=== PATIENT | female | born 1940 | race Caucasian/White ===

== ENCOUNTER 2020-08-06 04:28 | Inpatient (IN) | payer MEDICARE, BC ==
[2020-08-06] VITALS (11 sets, daily range): BP systolic 119–174; BP diastolic 59–86; PULSE 60–108; TEMP 97.8–98.2
[~2020-08-06] VITALS: Ht 157.5 cm; Wt 32.7 kg
[2020-08-06 05:05] LABS: BASO % 0.5 % (0.0-2.0); EOS # 0.1 (0.0-0.7); EOS % 1.3 % (0-4.0); GRAN # 5.2 (1.4-6.5); GRAN % 81.3 % (42.2-75.2); LYMPH # 0.6 (1.2-3.4); LYMPH % 9.4 % (20.0-51.0); MEAN CELL VOLUME 99 fl (80.0-100.0); MEAN CORPUSCULAR HEMOGLOBIN 32 pg (27.0-31.0); MEAN CORPUSCULAR HGB CONC 33 g/dl (33.0-37.0); MEAN PLATELET VOLUME 9.4 fl (7.4-10.4); MONO # 0.4 (0.1-0.6); MONO % 6.9 % (1.7-9.3); PLATELET COUNT 271 K/mm3 (130-400); RED BLOOD COUNT 3.71 M/mm3 (4.10-5.30); REDCELL DISTRIBUTION WIDTH-CV 13.6 % (11.5-14.5)
[2020-08-06 05:06] LABS: HEMATOCRIT 36.7 % (37.0-47.0)
[2020-08-06 05:24] LABS: ALBUMIN 3.8 gm/dL (3.5-5.0); BILIRUBIN,TOTAL 0.4 mg/dL (0.0-1.0); CALCIUM 9.1 mg/dL (8.4-10.2); CREATININE, serum 0.56 (0.52-1.25); POTASSIUM 3.4 mmol/L (3.4-5.0); TOTAL PROTEIN 6.8 gm/dL (6.4-8.2)
[2020-08-06 05:41] LABS: COLLECTION METHOD CLEAN CATCH
[2020-08-06 05:47] LABS: PH 8 (5-8); SQUAMOUS EPITHELIAL None Seen /hpf; URINE APPEARANCE Clear; URINE BACTERIA None Seen /hpf; URINE BILIRUBIN Negative (NEGATIVE); URINE BLOOD Negative (NEGATIVE); URINE COLOR Straw; URINE GLUCOSE Negative (NEGATIVE); URINE KETONE Negative (NEGATIVE); URINE LEUKOCYTE ESTERASE Negative (NEGATIVE); URINE NITRATE Negative (NEGATIVE); URINE PROTEIN(semi-quant) Negative (NEGATIVE); URINE RBC 0-2 /hpf; URINE UROBILINOGEN Negative (NEGATIVE)
--- NOTE | 2020-08-06 10:00 | NUR ---
KEYANA attended clinical rounds. The patient had a fall from her stepladder. PT/OT have been ordered. Awaiting recommendations. KEYANA then followed up with the patient to discuss discharge plan. The patient lives alone in [place]. She reports independence with ADLs and has a cane. She was not receiving any home health services prior. The patient's PCP is Dr. Chao Gomez and she receives her medications from [facility]. He reports no difficulties obtaining his meds. The patient does not have a DPOA-HC in EMR, but she states that she does have one completed and that it is in her safety box. She states that she designated her daughter, Selina (ph#[phone]). Selina lives in [place]. She states that her assistant city attorney office, [employer], should have a copy of it. KEYANA contacted Jackie at that firm and requested a copy. Jackie reports that they do have one on file and she can email the document to KEYANA. The patient states that she is . She has two living children: Selina and Price. Price lives in [place]. The patient would like to return home upon discharge. She states that Selina is flying up here and should be in [place] this evening. She states that Selina would be staying with her, when she leaves here. KEYANA attempted to contact Selina to review the above information. Selina's , Mick, answered the phone. Mick reports that he just dropped Selina off at the airport and that her flight into [place] should arrrive around 9:00 PM. Mick provided KEYANA with Selina's cell phone. Which is the above number. SW to continue to follow. *Discharge plan: Awaiting PT/OT recs*
--- NOTE | 2020-08-06 11:49 | NUR ---
Pt admission completed and charted. pt A&O, follows commands, needs redirection with conversation, occasionally scattered. Pt has LFA INT IV that flushes well. LS cta, HRRR, BS active. Pt very malnourished, thin and frail. Pt c/o pain to rt groin area from fall. Pt on room air, breathing is even and unlabored. No edema noted, pulses palpable. Pt c/o of being cold, provided w/ warm blanket. Pt down for MRI at this time. Report given to JEFERSON Monaco, receiving nurse.
--- NOTE | 2020-08-06 11:57 | NUR ---
SW received the patient's DPOA-HC and Living Will, via email. SW placed the documents in the patient's chart. The patient's DPOA-HC is her daughter, Selina, and son, Price.
--- NOTE | 2020-08-06 12:31 | NUR ---
Pt back from MRI, report given to JEFERSON Monaco. Pt has Rt hip fx. CXR and EKG ordered, staff called.
--- NOTE | 2020-08-06 12:39 | NUR ---
First visit from the deli manager. No needs right now.
[2020-08-06 13:27] LABS: INR 1.1 (0.8-3.0); PROTHROMBIN TIME 11.9 SECONDS (9.7-12.8)
--- NOTE | 2020-08-06 13:40 | NUR ---
Several new orders received. Xray done as well as EKG. ANUJ Thibodeaux with ortho and Dr Burgess just in to see patient. Pt is aware of surgery. She does have someone in the room with her. Pt cleared for surgery, OR called and will be getting patient soon. Clean gown on
--- NOTE | 2020-08-06 14:06 | NUR ---
Pt off the floor for surgery
--- NOTE | 2020-08-06 17:00 | NUR ---
Patient is back from surgery. She is alert and oriented. She is denying pain to her right hip. Her dressing to the 3 sites are C/D/I. Ice pack to hip. She has slight swelling to the distal 2 dressings. Her teleservices representative is here with her and stated her daughter is flying in [place]. Explained she can not come to visit her mom after 8pm. No other changes at this time. Call light within reach.
--- NOTE | 2020-08-06 19:00 | NUR ---
Patient is sitting up in the bed. Offered to help her get some food, she stated she just wanted water. She denies pain. She stated the potassium is burning so slowed the rate to 50ml/hr. NS infusing at 100ml/hr. She has a helms cathter but keeps asking about voiding. Explained the plan for the next couple days, she verbalized understanding. No other changes at this time. Call light within reach.
--- NOTE | 2020-08-06 20:00 | NUR ---
Patient assessed at this time. Complaining of buring/pain to IV site from Potassium. Called ANUJ Stockton and had it changed to oral instead. No further complaints to IV site. Site without redness, warmth, and swelling. Denies having SOB and dyspnea. LS CTA. Respirations even and unlabored. HRR. Capillary refill less than 3 seconds. Non-tenting skin turgor. BSAx4. Abdomen soft and non-tender. No edema. Indwelling helms catheter patent, and draining clear yellow urine via dependent drainage. Three surgical sites to right hip are CDI. Voices no questions, needs, or concerns at this time. Resting in bed with call light within reach.
--- NOTE | 2020-08-06 23:20 | NUR ---
Patient given PRN Mchenry for pain to right hip at this time, as well as PRN Melatonin for insomnia.
[2020-08-07 05:02] VITALS: BP 113/69; PULSE 77; TEMP 97.9
--- NOTE | 2020-08-07 06:11 | NUR ---
Patient has been resting in bed. no furhter complaints of pain or discomfort since receiving PRN [place] for pain. IV fluids continue per orders. Voices no questions, needs, or concerns at this time. Resting in bed with call light within reach.
[2020-08-07 07:17] LABS: BASO % 0.4 % (0.0-2.0); EOS # 0.1 (0.0-0.7); GRAN # 3.8 (1.4-6.5); GRAN % 78.5 % (42.2-75.2); LYMPH # 0.6 (1.2-3.4); LYMPH % 11.5 % (20.0-51.0); MEAN CELL VOLUME 99 fl (80.0-100.0); MEAN CORPUSCULAR HGB CONC 32 g/dl (33.0-37.0); MEAN PLATELET VOLUME 10.2 fl (7.4-10.4); MONO # 0.4 (0.1-0.6); MONO % 8.2 % (1.7-9.3); PLATELET COUNT 226 K/mm3 (130-400); REDCELL DISTRIBUTION WIDTH-CV 13.9 % (11.5-14.5)
[2020-08-07 07:24] LABS: HEMATOCRIT 30.8 % (37.0-47.0); HEMOGLOBIN 9.9 g/dl (12.5-16.0); MEAN CORPUSCULAR HEMOGLOBIN 32 pg (27.0-31.0)
[2020-08-07 07:27] LABS: CALCIUM 8.6 mg/dL (8.4-10.2); CREATININE, serum 0.54 (0.52-1.25); MAGNESIUM 2.1 mg/dL (1.6-2.3); POTASSIUM 3.6 mmol/L (3.4-5.0)
[2020-08-07 07:34] LABS: PRE ALBUMIN 14.2 mg/dL (17.6-36.0)
[2020-08-07 08:00] VITALS: BP 120/60; PULSE 73; TEMP 97.5
--- NOTE | 2020-08-07 09:31 | NUR ---
Initial visit; Patient sad about family not helping her but spoke about God's help and she doesn't care if she dies. She doesn't want to eat, she would just rather go be with God she says. Face And Fill Packer listened and spoke about God's help and his love for her. She did smile a couple times when Face And Fill Packer touched on something she liked. Tatiana thanked Face And Fill Packer for visit and offering prayer.
[2020-08-07 12:00] VITALS: BP 102/46; PULSE 83; TEMP 98.2
--- NOTE | 2020-08-07 14:49 | NUR ---
Assignment Desk Editor reviewed PT note and it is noted that patient would be a good candidate for Inpatient Rehab. KEYANA contacted Amena, [facility] Director to give referral. Amena met with patient and then followed up with KEYANA to advise that she can accept. KEYANA contacted patient's daughter, Selina who is in agreement with discharge to [facility].
[2020-08-07 15:55] VITALS: BP 118/65; PULSE 78; TEMP 98.1
--- NOTE | 2020-08-07 18:05 | NUR ---
Patient resting in bed at this time. Patient is alert and oriented, has been a bit forgetful and anxious today. Has denied pain in her hip, but has complained of pain in her neck and back. Duckworth removed per patient request with ok from ortho. Catheter intact. Patient denied further needs, call light within reach.
--- NOTE | 2020-08-07 18:30 | NUR ---
Patient resting in bed at this time. Patient is alert and oriented, has been a bit forgetful and anxious today. Has denied pain in her hip, but has complained of pain in her neck and back. Patient requested several times today to have helms removed for her comfort. Recieved OK from ortho to remove it, patient refused, states she thinks she is unable to get up to the bathroom to void, states she prefers to keep it until after therapy tomorrow.
--- NOTE | 2020-08-07 19:30 | NUR ---
Patient has supplements at bedside and daughter brought more up for her. Explained to patient that they would need to be checked by pharmacy. Patient does not understand and demands her supplements. ANUJ Alba, notified and will come and see patient.
[2020-08-07 19:35] VITALS: BP 115/95; PULSE 78; TEMP 97.7
--- NOTE | 2020-08-07 21:51 | NUR ---
Patient has complaints of being constipated but refused senekot. This nurse explained that they are stool softeners and not laxatives, but patient still refused.
[2020-08-07 23:42] VITALS: BP 135/64; PULSE 74; TEMP 98.6
[2020-08-08 04:31] VITALS: BP 117/68; PULSE 75; TEMP 98.7
--- NOTE | 2020-08-08 05:24 | NUR ---
Patient continues to call throughout the night asking for her supplements. Patient educated that they have to go through pharmacy and she will be given her doses around 0900, and she will be given all the supplements back when she is discharged.
[2020-08-08 07:25] LABS: BASO % 0.3 % (0.0-2.0); EOS % 0.5 % (0-4.0); GRAN # 4.7 (1.4-6.5); GRAN % 80.4 % (42.2-75.2); HEMOGLOBIN 10.5 g/dl (12.5-16.0); LYMPH # 0.7 (1.2-3.4); LYMPH % 11.9 % (20.0-51.0); MEAN CELL VOLUME 101 fl (80.0-100.0); MEAN CORPUSCULAR HEMOGLOBIN 33 pg (27.0-31.0); MEAN CORPUSCULAR HGB CONC 33 g/dl (33.0-37.0); MEAN PLATELET VOLUME 10.2 fl (7.4-10.4); MONO # 0.4 (0.1-0.6); MONO % 6.6 % (1.7-9.3); PLATELET COUNT 248 K/mm3 (130-400)
[2020-08-08 07:32] LABS: CALCIUM 8.4 mg/dL (8.4-10.2); CREATININE, serum 0.53 (0.52-1.25); POTASSIUM 3.9 mmol/L (3.4-5.0)
[2020-08-08 07:35] VITALS: BP 126/83; PULSE 78; TEMP 97.8
[2020-08-08 07:52] LABS: HEMATOCRIT 32.2 % (37.0-47.0)
--- NOTE | 2020-08-08 08:20 | NUR ---
Patient is lying in bed, VSS, alert and oriented.
--- NOTE | 2020-08-08 08:46 | NUR ---
Patient is sitting in chair, vital signs stable, alert and oriented, asks for removing catheter. Reports no pain or other need at the moment.
[2020-08-08] MEDS ORDERED: TYLENOL 325MG325 MG PO (11:38)
[2020-08-08] MEDS ORDERED: CELEBREX 200MG200 MG PO (11:38)
--- NOTE | 2020-08-08 11:59 | NUR ---
PT TRANSFERED TO IPR REPORT TO SERENE GOVEA. FAMILY WITH PT TO IPR.
== END 2020-08-08 12:00 | DRG 480 ==
LOC: COL.ER 04:28 → MEDICAL 06:24 → SURG 12:32 → MEDICAL 12:32 → SURG 16:25
PROVIDERS: Emergency Medicine; Orthopaedic Surgery; Student in an Organized Health Care Education/Training Program; ADMIT Internal Medicine
PROC: 0QS636Z Reposition Right Upper Femur with Intramedullary Internal Fixation Device, Percutaneous Approach (ICD-10-PCS; principal; 2020-08-06 14:30)
DX: S72.144A Nondisplaced intertrochanteric fracture of right femur, initial encounter for closed fracture (principal); E43 Unspecified severe protein-calorie malnutrition; Z68.1 Body mass index [BMI] 19.9 or less, adult; R64 Cachexia; Z66 Do not resuscitate; Z87.891 Personal history of nicotine dependence; W11.XXXA Fall on and from ladder, initial encounter; Z86.19 Personal history of other infectious and parasitic diseases
CPT/HCPCS: 99223-AI; 99232-AI; 99239; A4314; A9284; C1713; J0690; J1650; J1885; J2250; J2405; J2704; J2795; J3010; J3480

== ENCOUNTER 2020-08-08 11:30 | Inpatient (IN) | payer MEDICARE, BC ==
[2020-08-08] MEDS ORDERED: TYLENOL 325MG325 MG PO (11:38)
[2020-08-08] MEDS ORDERED: CELEBREX 200MG200 MG PO (11:38)
[2020-08-08 17:42] VITALS: BP 117/57; PULSE 84; TEMP 97.7
--- NOTE | 2020-08-08 18:24 | NUR ---
PT BROUGHT OVER FROM SURGICAL ROOM 325 FOR RT HIP FX, TO ROOM 334 IPR. PT ORIENTED TO UNIT, HOME MEDICATIONS REVIEWED BY DOCTOR AND PHARMACIST AND CONTINUED BASED ON THEIR ASSESSMENT. PT IS VERY UPSET THAT NOT ALL SUPPLEMENTS ARE BEING RESTARTED. SOUNDS LIKE AT HOME THE PT DOES NOT EAT MUCH AT ALL AND RELIES ON SUPPLEMENTS FOR NUTRITION. PT IS VERY UNDERWEIGHT AND HAS A DISTENDED FIRM GUT, IS PASSING GAS. ATTEMPTED TO HAVE BM TODAY, NOT EFFECTIVE. CONVINCED PT TO TRY WARM PRUNE JUICE AND LATER CONVINCED TO TRY SUPPOSITORY. PT STATES SHE USESA AN ENEMA DAILY AT HOME. BELIEVE PT CONCERNED ABOUT WEIGHT AND APPEARANCE AND HAS MISGUIDED BODY IMAGE.
--- NOTE | 2020-08-08 20:00 | NUR ---
UP TO [facility]SC 2:1 PIVOT TRANSFER. HAD LG BROWN STOOL WITH VOID. PT HAS SIGNIFICANT SCOLIOSIS. PT VERY NEEDY. USES CALL LIGHT FREQUENTLY. REFUSES TYLENOL AT THIS TIME. HOLLERS WITH TRANSFERS. VERY ANXIOUS. PT ABLE TO PROVIDE OWN HYGIENE BUT REQUIRED ASSIST WITH CLOTHING. CALL LIGHT IN REACH. BED ALARM SET.
[2020-08-09 05:48] VITALS: BP 105/58; PULSE 69; TEMP 97.6
--- NOTE | 2020-08-09 07:00 | NUR ---
Repositioned patient in bed. Knees were bent and pt stated that she was stiff, but also did want to move. Educated patient on the importance of activity. Assisted pt with straightening her legs. K-pad to her back. No other needs, will continue to monitor
--- NOTE | 2020-08-09 10:00 | NUR ---
Pt sitting on commode having a hard time having a bowel movement. Pt was very unhappy regarding that we are not providing her with what she needs. She is wanting a cocunut suppository and "her type" of enemas although not sure what it is. She is also upset that we do not have the right things for her to eat. Called ANUJ Stringer to notify regarding bowel problems.
--- NOTE | 2020-08-09 12:42 | NUR ---
Continued to work with patient on prolapsed rectum. Juliet and Dr Brand have been in to see patient. Tried putting sugar on to decrease swelling. Dr Brand tried to reduce the prolapse. Dr Mccormick has been consulted, notified and has also seen patient. Added more sugar per his order. Pt has drank some of her lunch that she ordered. Pt's daughter is present with her. Pt states that she is as comfortable as she can be. Dr Mccormick stated to repeat sugar every 15-30 min until he returns.
--- NOTE | 2020-08-09 13:05 | NUR ---
Patient calls out the she needs to urinate. Daughter is in room. Explain that I will need to check with the nurse and provider to see what we need to do due to the rectal prolapse. Inform JEFERSON Monaco, and also contact ANUJ Chung. Orders received for external catheter application. Discuss with the patient and her daughter the external catheter. Patient agrees with plan. Pericare completed and external catheter applied. Receive small amount of clear yellow urine into cannister. Patient remains lying in bed on left side. Patient is aware that we do not want her to get out of bed at this time due to the prolapse. Patient and daughter deny additional needs at this time.
--- NOTE | 2020-08-09 15:30 | NUR ---
Have continued to go in and apply sugar to patients prolapse rectum. ANUJ Chung has been in several times to check in on patient. Currently the prolapse appears to be more firm and does appear to be changing color. Juliet notified and also notified Dr Mccormick. Plan to transfer patient, working on paperwork
--- NOTE | 2020-08-09 16:05 | NUR ---
IV started in pt right forearm, pain medication given. Dr Baldwin and ANUJ Chung at bedside. Pt having increase in pain, encouraged her to try and leave prolapse alone. Tissue appears as if it is starting to dry out. Juliet informed. Saturated washcloth applied to rectum as patient is not able to keep her hands off of it.
--- NOTE | 2020-08-09 16:11 | NUR ---
Pt verbalizing a lot of complaints stating that she has been in pain all day long. This is new to me as she has not had any complaints of pain until now. She stated that it is not uncomfortable unless it is really being messed with. She then said, "I know, I know." She then stated that we forced her to eat things she didn't want to eat. I asked what she ate that she didn't want, she could not answer me. He daughter then stated that she has not ate anything today that she has not wanted. She then stated that she wishes that we would have just talked to Dr Shah. Pt did call him earlier in the day. I spoke with him shortly after and informed him that Dr Mccormick was consulted and saw the patient. Dr Shah agreed with this and stated that it what he would have suggested.
[2020-08-09 17:32] VITALS: BP 120/64; PULSE 82; TEMP 98
--- NOTE | 2020-08-09 17:33 | NUR ---
Pt being very verbally abusive. She is stating that we are starving her and that we never give her enough to eat. I reminded her that earlier she was upset because we were trying to get her to eat too much food. She then stated how upset she was that Dr Mccormick came to see her and that he had no idea what he was doing. Earlier she was very complimentary of him and appreciated his effort. She continued to stated that Dr Shah never would have had her stay here. Daughter present in the room and kept trying to calm patient. Pt continues to yell stating that she is just going to and can't she just have one final meal.
--- NOTE | 2020-08-09 18:25 | NUR ---
Report called to [facility], all questions answered. Pt and daughter aware of transfer and that there is a bed assigned. Awaiting EMS
--- NOTE | 2020-08-09 18:30 | NUR ---
Pt left via EMS, daughter driving herself
--- NOTE | 2020-08-09 18:37 | NUR ---
Mary Martines RN at [facility] notified of [facility] transferring patient to their facility. Here to order picker patient at this time and will be transferring shortly. No other requests from [facility] at this time.
== END 2020-08-09 18:30 | disposition short-term general hospital (02) | DRG 535 ==
PROVIDERS: ADMIT Internal Medicine
DX: S72.141A Displaced intertrochanteric fracture of right femur, initial encounter for closed fracture (principal); E43 Unspecified severe protein-calorie malnutrition; Z68.1 Body mass index [BMI] 19.9 or less, adult; K62.3 Rectal prolapse; Z87.891 Personal history of nicotine dependence; W11.XXXA Fall on and from ladder, initial encounter
CPT/HCPCS: 99223-AI; 99232-AI; 99239; J3010